=== PATIENT | female | born 1960 | race Caucasian/White ===

== ENCOUNTER 2017-10-11 08:48 | Day surgery (SDC) | payer OTHER ==
[2017-10-11] MEDS ORDERED: FENTAnyl 50 MCG/ML VIAL (11:05)
[2017-10-11] MEDS ORDERED: MIDAZOLAM 1 MG/ML 2 ML INJ (11:05)
== END 2017-10-11 13:41 | disposition home or self-care (01) ==
LOC: GIL 08:48
DX: Z12.11 Encounter for screening for malignant neoplasm of colon (principal); K21.9 Gastro-esophageal reflux disease without esophagitis; K29.60 Other gastritis without bleeding; K64.8 Other hemorrhoids; I10 Essential (primary) hypertension
CPT/HCPCS: 43239; 87081